=== PATIENT | female | born 1950 | race Caucasian/White ===

== ENCOUNTER 2021-10-23 08:42 | Emergency (ER) | payer MEDICARE, OTHER, SELFPAY ==
[2021-10-23 08:45] VITALS: BP 163/75; PULSE 86; RESP 18; TEMP 36.9; O2SAT 95; BMI 41.5
--- NOTE | 2021-10-23 08:51 | DI.US.S_ITS ---
PROCEDURE: US PERIPH VENOUS LOW EXTREM RT INDICATIONS: CALF PAIN TECHNIQUE: Real-time imaging, as well as color and pulse Doppler interrogation, were performed of the lower extremity deep veins from the inguinal ligament to the popliteal fossa. COMPARISON: None. FINDINGS: The common femoral, femoral and popliteal veins are normally compressible, and free of intraluminal thrombus. Color and pulse Doppler demonstrate normal phasic intraluminal flow. There is normal augmentation response to distal compression maneuver. There is a fluid collection in the right medial calf measuring 7.6 x 1.3 x 4.5 cm. Question hematoma. IMPRESSION: 1. No evidence of right lower extremity DVT. 2. Right medial calf fluid collection. Question hematoma. Dictated by: Martir Ballesteros M.D. on 10/23/2021 at 9:35 Approved by: Martir Ballesteros M.D. on 10/23/2021 at 9:37
--- NOTE | 2021-10-23 08:52 | ED_ITS ---
HPI - Extremity Problem General Chief complaint: Extremity Injury, Lower Stated complaint: calf muscle tear sent from [facility] Time Seen by Provider: 10/23/21 08:46 History of Present Illness HPI Narrative: 71F former smoker with history of hypertension, hyperlipidemia, diabetes presents from the walk-in clinic for evaluation of a right calf injury. She states that she noticed a pulling sensation with some bruising in her calf a few weeks ago and has had ongoing pain with ambulation. She is had episodes of redness and swelling and has a history of clots. She denies any chest pain or shortness of breath. She is had no fever or chills. She is not dizzy, weak or lightheaded. She presented initially to the walk-in clinic and was sent here for evaluation of possible DVT versus other Related Data Home Medications Medication Instructions Recorded Confirmed ascorbic acid (vitamin C) 500 mg mg PO 10/23/21 10/23/21 capsule aspirin 81 mg tablet,delayed 81 mg PO DAILY 10/23/21 10/23/21 release (Adult Aspirin Regimen) atorvastatin 20 mg tablet 20 mg PO DAILY 10/23/21 10/23/21 biotin 1,000 mcg chewable tablet 1,000 mcg PO DAILY 10/23/21 10/23/21 lisinopril 20 mg tablet 20 mg PO DAILY 10/23/21 10/23/21 metformin 850 mg tablet 850 mg PO BID 10/23/21 10/23/21 Allergies Allergy/AdvReac Type Severity Reaction Status Date / Time bee venom protein (honey bee) Allergy Mild Swelling Verified 10/23/21 08:20 of Lip/Tongue/Throat Penicillins Allergy Mild Swelling Verified 10/23/21 08:20 of Lip/Tongue/Throat Sulfa (Sulfonamide Allergy Mild Swelling Verified 10/23/21 08:20 Antibiotics) of Lip/Tongue/Throat Review of Systems Review of Systems Narrative: GENERAL: Denies chills, fatigue, malaise, fever, sweats. HEENT: Denies sinus pain, ear pain, sore throat, difficulty swallowing, dizziness. RESPIRATORY: Denies dyspnea, cough, wheezing, hemoptysis, sputum. CARDIOVASCULAR: Denies chest pain, palpitations, orthopnea, edema, GASTROINTESTINAL: Denies nausea, vomiting, abdominal pain, diarrhea, constipation, melena. : Denies dysuria, frequency, incontinence, hematuria, urinary retention. MUSCULOSKELETAL: See HPI SKIN: Denies rash, skin lesions, or other NEUROLOGIC: Denies weakness, headache, numbness, change in speech, confusion, seizures, incoordination. PSYCHIATRIC: No concerning psychosocial issues. 12 point review of systems is negative except for those stated above Patient History Social History Smoking Status: Former smoker Smoking Status: Former smoker Exam Narrative Exam Narrative: GEN: AOx3 and in mild distress EYES: Pupils are equal, round, and reactive to light and accommodation. Extraoccular muscles are intact bilaterally. There is no subconjunctival hemorrhage or exudate. CHEST: Lungs are clear to auscultation bilaterally and free of wheezes, rales, or rhonchi. Heart rate is regular rhythm, there are no murmurs, clicks, rubs, or gallops. There is no chest wall tenderness. ABD: Abdomen is soft and nontender. There is no guarding or rebound. Bowel sounds are normal in all 4 quadrants. There is no mass or organomegaly. EXT: Minimal pain on palpation of posterior right calf with some small area of dark purple ecchymosis. No swelling, erythema noted, no red streaks. Achilles is palpable and intact. No pain with calf squeeze SKIN: Warm, pink, and dry. No erythema or rash Initial Vital Signs Initial Vital Signs: Vital Signs Temperature 98.5 F 10/23/21 08:45 Pulse Rate 86 10/23/21 08:45 Respiratory Rate 18 10/23/21 08:45 Blood Pressure 163/75 H 10/23/21 08:45 Pulse Oximetry 95 10/23/21 08:45 Oxygen Delivery Method 10/23/21 08:45 Course Orders Ordered: ED Orders 10/23/21 08:51 US periph venous low extrem rt Stat Vital Signs Vital signs: Vital Signs - 8 hr 10/23/21 08:45 Temperature 98.5 F Pulse Rate 86 Respiratory Rate 18 Blood Pressure 163/75 H Pulse Oximetry 95 Oxygen Delivery Method Room Air MDM - Extremity (Nontraumatic) Imaging Data US - DVT: Radiologist's Impression: [address] [address] Ultrasound Report Signed Patient: Jazzy Hernandez MR#: [id number] : 1950 Acct:[id number] Age/Sex: 71 / F Date of Service: 10/23/21 Loc: ED Accession Number: [id number] ?? Procedure: US periph venous low extrem rt Ordering Provider: Robby Andrew D.O. PROCEDURE:? US PERIPH VENOUS LOW EXTREM RT ? INDICATIONS:? CALF PAIN ? TECHNIQUE:? Real-time imaging, as well as color and pulse Doppler interrogation, were performed of the lower extremity deep veins from the inguinal ligament to the popliteal fossa.? ? COMPARISON:? None. ? FINDINGS:? The common femoral, femoral and popliteal veins are normally compressible, and free of intraluminal thrombus.? Color and pulse Doppler demonstrate normal phasic intraluminal flow.? There is normal augmentation response to distal compression maneuver. ? ? There is a fluid collection in the right medial calf measuring 7.6 x 1.3 x 4.5 cm.? Question hematoma.? ? IMPRESSION:? ? 1. No evidence of right lower extremity DVT. ? 2. Right medial calf fluid collection.? Question hematoma.? ? ? Dictated by: Martir Ballesteros M.D. on 10/23/2021 at 9:35 ? ? Approved by: Martir Ballesteros M.D. on 10/23/2021 at 9:37 ? Discharge Plan Departure Patient Disposition: Home Clinical Impression: Hematoma of right lower leg Activity Restrictions/Additional Instructions: *You have been diagnosed with [right calf injury with evidence of hematoma. As we discussed your history and physical exam are reassuring and ultrasound shows no evidence of deep vein clot] *What to do: *Please continue to take your regular medications as directed. [ ] New medication prescriptions sent to your pharmacy: [ ] [ ] New medication written as a paper prescription [ x] No new medications given *Please follow up with your primary care provider in 2-3 days, call for an appointment. Let them know you were seen in the Emergency Department and that we ask that you be seen in follow up. We will electronically transmit a record of today's note if your PCP is in our system * the use of compressive stockings can be helpful *Return to Emergency Department if you should have any new, worsening or concerning symptoms, such as [fever greater than 101 F, shaking chills, worsening pain, persistent vomiting or other bothersome symptoms] Prescriptions: No Action metformin 850 mg tablet 850 mg PO BID atorvastatin 20 mg tablet 20 mg PO DAILY lisinopril 20 mg tablet 20 mg PO DAILY biotin 1,000 mcg tablet,chewable 1,000 mcg PO DAILY ascorbic acid (vitamin C) 500 mg capsule PO aspirin [Adult Aspirin Regimen] 81 mg tablet,delayed release (DR/EC) 81 mg PO DAILY Referrals: Miscellaneous,Doctor, MD [Primary Care Provider] - Visit Report Forms: Patient Portal/API
[2021-10-23 10:04] VITALS: BP 159/72; PULSE 73; O2SAT 95
== END 2021-10-23 10:16 | disposition home or self-care (01) ==
PROVIDERS: Emergency Provider Emergency Medicine
DX: S80.11XA Contusion of right lower leg, initial encounter (principal); X58.XXXA Exposure to other specified factors, initial encounter
CPT/HCPCS: 93971; 99281; 99283